=== PATIENT | male | born 1995 | race Two or more races ===

== ENCOUNTER 2022-01-24 12:59 | Emergency (ER) | payer MEDICAID, OTHER ==
[~2022-01-24] VITALS: Ht 167.6 cm; Wt 59.0 kg
[2022-01-24] MEDS ORDERED: methylPREDNISolone SOD SUCC 125 MG/2 ML VL IM ONE (13:30)
[2022-01-24] MEDS ORDERED: IPRATROPIUM BROM 0.5 MG/2.5ML INH SOL NEB ONE (13:30)
[2022-01-24] MEDS ORDERED: ALBUTEROL SULF 2.5 MG/0.5ML(0.5%) NEB SOLN NEB ONE (13:30)
[2022-01-24] MEDS ORDERED: ALBUAER3 IN (13:36)
[2022-01-24] MEDS ORDERED: METH4PAK PO (13:36)
[2022-01-24 19:25] VITALS: BP 110/61
== END 2022-01-24 19:32 | disposition home or self-care (01) ==
LOC: EDBD 12:59 → ER 12:59
DX: J45.901 Unspecified asthma with (acute) exacerbation (principal)
CPT/HCPCS: 71045; 94640; 96372; 99283; J2930; J7644